=== PATIENT | female | born 1985 | race Caucasian/White ===

== ENCOUNTER 2017-09-15 14:15 | Inpatient (IN) | payer MEDICAID, SELFPAY ==
[2017-09-15] MEDS: Lactated Ringers 1,000 ML 50 ML IV ×2 (14:20→17:18)
[2017-09-15 14:50] VITALS: BMI 29.3
[2017-09-15 15:16] LABS: Hematocrit 35.3 % (37-47); Hemoglobin 11.4 g/dl (12.0-15.0); Mean Corp Hgb Conc 32.3 g/gl (32-36); Mean Corpuscular Hgb 28.5 pg (27.0-32.0); Mean Corpuscular Volume 88.3 fL (81-99); Mean Platelet Vol. 11.1 fl (6.2-12.0); Platelet Count 237 K/mm3 (150-450); RBC Distribution Width CV 13.2 % (11.6-14.6); RBC Distribution Width SD 42.5 fl (35.1-43.9); Scan Indicated on CBC? Y/N NO; White Blood Count 10.2 K/mm3 (4.4-11.0)
[2017-09-15] MEDS: fentaNYL-bupivacaine (epidural) 100 ML BAG EPIDURAL (17:16)
[2017-09-15] MEDS: Oxytocin 30 units/NS 500 ml 30 UNITS/500 ML IV.SOLN 334 UNITS IV (18:31)
--- NOTE | 2017-09-15 18:59 | HP.PCM_ITS ---
Problem List (1) Active labor at term Status: Acute History of Present Illness Date of Admission: 09/15/17 The patient is a 31 year old F [ admitted with SROM this afternoon with contractions. EDC of 10/03/17. Uncomplicated course with Dr. Barajas at [facility]. records obtained with no significant findings other than GBS + status. ] Past Medical History Allergies No Known Drug Allergies Allergy (Verified 12/26/12 04:13) Unknown Home Medications: Ambulatory Orders Medication Instructions Recorded Vits [Prenatabs FA ] 1 tablet PO DAILY 12/26/12 Surgical History: no surgical history Psychiatric History: No pertinent psych hx [employer] History: No pertinent [employer] history, spontaneous - first trimester Lives: Spouse/ Significant Other Smoking Status: Never smoker Tobacco Use: Non-smoker Alcohol: None Drugs: None - *Family History Maternal History Items: No pertinent history Paternal History Items: No pertinent history Review of Systems Constitutional: Denies: Fever Cardiovascular: Denies: Chest Pain, Chest Pressure, Chest Tightness, Edema Respiratory: Denies: Shortness of Breath Gastrointestinal: Denies: Abdominal Pain Genitourinary: Denies: Dysuria Psychiatric: Denies: Anxiety, Depression VTE Information - Inpt Only VTE Present on Admission: No VTE Mechan Device Prophylaxis: None VTE Pharm Prophylaxis ordered?: No Reason prophylaxis not ordered:: Treatment Not Indicated Patient Problems: Active and Suspected Problems Active labor at term (Acute) Subjective: Cervical exam 5-6 cm. Grossly ruptured. Objective: Afeb VSS. FHR tracing Cat 1. - Physical Exam General: Alert, Oriented x3, Cooperative, No apparent distress Lungs: Clear to auscultation, Normal air movement Cardiovascular: Regular rate, Regular Rhythm Abdomen: Soft, Non Tender, Non-Distended, Gravid, Appropriate for Gestational Age Extremities: No edema Skin: No rashes Neurological: Neuro grossly intact Psych/Mental Status: Normal Affect Comment: CE 6cm Weight: 165 lb 12.602 oz Body Mass Index (BMI) 29.3 Intake and Output for Last 24 Hours 09/13/17 09/14/17 09/15/17 23:59 23:59 23:59 Intake Total 1000 / 1000 Balance 1000 / 1000 Laboratory Tests Past 24 Hrs 09/15/17 09/15/17 09/15/17 15:00 15:00 15:00 WBC 10.2 RBC 4.00 L Hgb 11.4 L Hct 35.3 L MCV 88.3 MCH 28.5 MCHC 32.3 RDW 13.2 RDW Differential 42.5 Plt Count 237 MPV 11.1 Blood Type A NEGATIVE Antibody Screen TNP NEGATIVE Assessment/Plan All Active Problems Active labor at term (Acute) Reassuring heart rate tracing. Expect . Will start GBS prophylaxis. Epidural if desired. Will collect cord bloods at delivery as A negative blood type.
[2017-09-15] MEDS: Oxytocin 30 units/NS 500 ml 30 UNITS/500 ML IV.SOLN 167 UNITS IV (19:01)
--- NOTE | 2017-09-15 19:09 | PCM.OB.VAG ---
- Problem List (1) Active labor at term Status: Acute Vaginal Delivery Maternal Presentation: Active Labor, Spontaneous Rupture of Membranes 37 weeks in active labor with SROM Amniotic Membrane Rupture Type: Spontaneous at home Rupture of Membrane time: 1300 Amniotic Fluid Description: Clear Final ROBBI: 10/03/17 Final ROBBI Source: US <20 weeks Gestational age: 37 Weeks and 3 Days Date of Procedure: 09/15/17 Pre-Operative Diagnosis: Labor Post-Operative Diagnosis: same Surgery/ Procedure Performed: Spontaneous Vaginal Delivery Anesthesiologist: Chip Pond Type of Anesthesia: Epidural Description of Procedure: Progressed to FD over 3 1/2 hours. Pushed for less than 5 minutes to deliver a live male without complication. There was a loose cord around the neck that was reduced at delivery. Apgars were 8/9. Delayed cord clamping was employed. Cord bloods were collected. The placenta was delivered spontaneously intact with a centrally located #VC. The uterus contracted well. Inspection revealed an intact cervix, perineum and upper vagina. A small posterior vaginal first degree laceration was repaired with 2-0 Vicryl. Presentation: Vertex Placental Delivery Description: Spontaneous Placenta Disposition: [facility] Percentage of Placenta Abruption: 0 Cord Vessel Description: 3 Vessels Nuchal Cord Compression: Without compression Cord Entanglement: Around neck x 1, loose Estimated Blood Loss: 300cc A gender: Male (1 minute): 8 (5 minute): 9 Episiotomy Description: None Laceration: Midline, Vaginal Extension/lac, 1st degree Medications given after delivery: IV Pitocin Complications: None
--- NOTE | 2017-09-15 19:17 | DCINST_ITS ---
Discharge Diet: No Restrictions Discharge Activity: Return to Normal Activity, May Drive, May Shower Return to work on:: 11/15/17 May resume sexual activity in: 4-6 weeks Call your doctor if your incision/area has: Sudden Increased Bleeding, Increased Pain/ Swelling, Foul Smelling Discharge Call your doctor if you observe: Fever of 101 or Higher, Inability to urinate, Inability to have a bowel movement, Using more than one pad per hour, Shortness of breath, Chest pain, Calf discomfort, Uncontrolled pain Cleanse incision/area with: Soap & Water Additional Instructions: If you experience any of the following, contact your healthcare provider. * Bleeding that soaks a pad every hour for 2 hours * Fever 100.4 or higher * Unrelieved incision or abdominal pain * Swelling, redness, discharge or bleeding from your incision or episiotomy site * Your incision begins to separate * Problems urinating (including inability to urinate or burning while urinating) . * Visual changes * Severe headache * Flu-like symptoms * Pain or redness in one of both of your breasts * Pain, warmth, tenderness or swelling in your legs, especially the calf area * Frequent nausea and vomiting * Symptoms of depression or anxiety If you experience any of the following, call 911 or go to the nearest Emergency Room. * Chest pain * Problems breathing * Seizure activity * Partial or complete paralysis of a body part, slurred speech, weakness or drooping of the face, or a sudden inability to walk or hold your balance Allergies/Adverse Reactions: Allergies No Known Drug Allergies Allergy (Verified 12/26/12 04:13) Unknown Medications to take at Discharge Vits [Prenatabs FA ] 1 tablet PO DAILY 12/26/12 Ibuprofen 600 mg PO Q6H PRN PRN #30 tab 09/15/17 The following prescriptions were given: Ibuprofen 600 mg PO Q6H PRN PRN #30 tab PRN Reason: pain or cramping Please Follow Up With: Otilio Huitron MD When: 6 weeks Primary Care Physician: Care Physician,No Primary [Primary Care Provider] - Test Results: Test results from this visit will be discussed in further detail at your follow- up appointment, if applicable. Proposed Discharge Date: 09/17/17
[2017-09-15] MEDS: Acetaminophen 500 MG Tablet 1000 MG PO (21:56)
[2017-09-16] VITALS: BP 117/67; PULSE 86; RESP 18; TEMP 37.1
[2017-09-16 03:15] VITALS: BP 126/84; PULSE 75; RESP 18; TEMP 36.7; O2SAT 99
[2017-09-16 06:30] LABS: Hematocrit 31.6 % (37-47); Hemoglobin 10.5 g/dl (12.0-15.0); Mean Corp Hgb Conc 33.2 g/gl (32-36); Mean Corpuscular Hgb 29.4 pg (27.0-32.0); Mean Corpuscular Volume 88.5 fL (81-99); Mean Platelet Vol. 10.9 fl (6.2-12.0); Platelet Count 216 K/mm3 (150-450); RBC Distribution Width CV 12.9 % (11.6-14.6); RBC Distribution Width SD 40.2 fl (35.1-43.9); Red Blood Count 3.57 M/mm3 (4.2-5.4); White Blood Count 9.9 K/mm3 (4.4-11.0)
[2017-09-16 06:31] LABS: Scan Indicated on CBC? Y/N NO
--- NOTE | 2017-09-16 07:38 | PCM.PN.OB ---
Patient Problems: Active and Suspected Problems Active labor at term (Acute) Subjective: No complaints. Breast feeding bleeding light. Objective: Afeb VSS Hgb stable. - Physical Exam General: Alert, Oriented x3, Cooperative, No apparent distress Lungs: Clear to auscultation, Normal air movement Cardiovascular: Regular rate, Regular Rhythm Abdomen: Soft, Non Tender, Non-Distended, - - Fundus firm nontender Extremities: No edema Skin: No rashes Neurological: Neuro grossly intact Psych/Mental Status: Normal Affect Comment: Lochia light Vital Signs Temp Pulse Resp BP Pulse Ox 98.1 F 75 18 126/84 H 99 09/16/17 03:15 09/16/17 03:15 09/16/17 03:15 09/16/17 03:15 09/16/17 03:15 Oxygen Delivery Method Room Air Weight: 165 lb 12.602 oz Body Mass Index (BMI) 29.3 Intake and Output for Last 24 Hours 09/14/17 09/15/17 09/16/17 23:59 23:59 23:59 Intake Total 1779 / 1779 Output Total 500 / 500 600 / 600 Balance 1279 / 1279 -600 / -600 Laboratory Tests Past 24 Hrs 09/15/17 09/15/17 09/15/17 15:00 15:00 15:00 WBC 10.2 RBC 4.00 L Hgb 11.4 L Hct 35.3 L MCV 88.3 MCH 28.5 MCHC 32.3 RDW 13.2 RDW Differential 42.5 Plt Count 237 MPV 11.1 Blood Type A NEGATIVE Antibody Screen TNP NEGATIVE Screen Baby's Blood Type Baby's JEANINE 09/15/17 09/16/17 21:00 06:17 WBC 9.9 RBC 3.57 L Hgb 10.5 L Hct 31.6 L MCV 88.5 MCH 29.4 MCHC 33.2 RDW 12.9 RDW Differential 40.2 Plt Count 216 MPV 10.9 Blood Type Antibody Screen Screen NEGATIVE Baby's Blood Type O POSITIVE Baby's JEANINE NEGATIVE Medical Necessity - Tobacco Use Smoking Status: Never smoker Tobacco Use: Non-smoker Assessment/Plan All Active Problems Active labor at term (Acute) Doing well on PP day#2. Continue routine PP care. Will need PP rhogam.
[2017-09-16 08:00] VITALS: BP 112/81; PULSE 87; RESP 16; TEMP 36.5; O2SAT 97
[2017-09-16] MEDS: Acetaminophen 500 MG Tablet 1000 MG PO (10:51)
[2017-09-16] MEDS: Prenatal Vits Tablet 1 TABLET PO (11:15)
[2017-09-16 13:33] VITALS: BP 120/81; PULSE 88; RESP 16; TEMP 36.5; O2SAT 97
[2017-09-16 16:00] VITALS: BP 124/83; PULSE 83; RESP 16; TEMP 36.7; O2SAT 96
[2017-09-16 20:45] VITALS: BP 122/73; PULSE 75; RESP 16; TEMP 36.7; O2SAT 97
[2017-09-17 02:55] VITALS: BP 121/80; PULSE 86; RESP 16; TEMP 37; O2SAT 96
[2017-09-17] MEDS: Ibuprofen 600 MG Tablet PO (03:07)
[2017-09-17 08:45] VITALS: BP 117/75; PULSE 79; RESP 16; TEMP 36.4; O2SAT 95
--- NOTE | 2017-09-17 09:05 | PCM.PN.OB ---
Patient Problems: Active and Suspected Problems Active labor at term (Acute) Subjective: Doing well on PP day#2. Breast feeding. Bleeding light. Objective: Afeb VSS - Physical Exam General: Alert, Oriented x3, Cooperative, No apparent distress Lungs: Clear to auscultation, Normal air movement Cardiovascular: Regular rate, Regular Rhythm Abdomen: Bowel Sounds Present, Soft, Non Tender, Non-Distended, - - Fundus nontender Extremities: No edema Vital Signs Temp Pulse Resp BP Pulse Ox 97.5 F L 79 16 117/75 95 09/17/17 08:45 09/17/17 08:45 09/17/17 08:45 09/17/17 08:45 09/17/17 08:45 Oxygen Delivery Method Room Air Weight: 165 lb 12.602 oz Body Mass Index (BMI) 29.3 Intake and Output for Last 24 Hours 09/15/17 09/16/17 09/17/17 23:59 23:59 23:59 Intake Total 1779 / 1779 Output Total 500 / 500 600 / 600 Balance 1279 / 1279 -600 / -600 Medical Necessity - Tobacco Use Smoking Status: Never smoker Tobacco Use: Non-smoker Assessment/Plan All Active Problems Active labor at term (Acute) Doing well on PP day#2. Cleared for discharge home today. Home going instructions and warnings given.
--- NOTE | 2017-09-17 09:07 | PCM.DC.SUM ---
Discharge Date and Diagnosis - Problem List Patient Problems: Active and Suspected Problems Active labor at term (Acute) Date of Admission: 09/15/17 Date of Discharge: 09/17/17 - Primary Discharge Diagnosis Active and Suspected Problems Active labor at term (Acute) Hospital Course and Treatment Consultations 09/15/17 14:50 Consult: Anesthesia Routine Comment: Reason For Exam: LABOR Operations: None Procedures: - - Summary of Care Provided: The patient is a 31 year old F [admitted in active labor with SROM. Progressed to FD then pushed for a short time to deliver a live without complication. Post course unremarkable. Discharged home on PP day#2.] Discharge Diet: No Restrictions Discharge Activity: Return to Normal Activity, May Drive, May Shower Return to work on:: 11/15/17 May resume sexual activity in: 4-6 weeks Call your doctor if your incision/area has: Sudden Increased Bleeding, Increased Pain/ Swelling, Foul Smelling Discharge Call your doctor if you observe: Fever of 101 or Higher, Inability to urinate, Inability to have a bowel movement, Using more than one pad per hour, Shortness of breath, Chest pain, Calf discomfort, Uncontrolled pain Cleanse incision/area with: Soap & Water Home Medications: Medications to take at Discharge Vits [Prenatabs FA ] 1 tablet PO DAILY 12/26/12 Ibuprofen 600 mg PO Q6H PRN PRN #30 tab 09/15/17 Following Prescrptions Were Given to Patient: Ibuprofen 600 mg PO Q6H PRN PRN #30 tab PRN Reason: pain or cramping Primary Care Physician: Care Physician,No Primary [Primary Care Provider] - Please Follow Up With: Otilio Huitron MD When: 6 weeks Disposition: Home Minutes spent on discharge:: 15 Patient Condition:: Good Medical Necessity - Tobacco Use Smoking Status: Never smoker Tobacco Use: Non-smoker Meaningful Use Info Meaningful Use Diagnoses (Choose all that apply): None applicable
[2017-09-17] MEDS: Prenatal Vits Tablet 1 TABLET PO (11:15)
[2017-09-17 13:32] VITALS: BP 112/83; PULSE 103; TEMP 36.6; O2SAT 98
== END 2017-09-17 14:45 | disposition home or self-care (01) | DRG 373 ==
PROVIDERS: Admitting Provider Obstetrics & Gynecology; Visit Provider Obstetrics & Gynecology
DX: O69.81X0 Labor and delivery complicated by cord around neck, without compression, not applicable or unspecified (principal); Z3A.37 37 weeks gestation of pregnancy; Z37.0 Single live birth; O99.820 Streptococcus B carrier state complicating pregnancy; O70.0 First degree perineal laceration during delivery
CPT/HCPCS: 59025; 59050; 85027; 85461; 86850; 86900; 90384; 99218; J7120; G0378; J2790